=== PATIENT | female | born 1985 | race Caucasian/White ===

== ENCOUNTER 2023-06-06 03:37 | Outpatient (CLI) | payer MEDICAID, SELFPAY ==
[2023-06-06 11:14] LABS: Panorama Kit Sent via Fed Ex
[2023-06-06 11:25] LABS: Abs Immature Grans 0.03 10^3/uL (0.0-0.06); Absolute Basophil Count 0.05 10^3/uL (0.0-0.2); Absolute Eosinophil Count 0.05 10^3/uL (0.0-0.7); Absolute Monocyte Count 0.38 10^3/uL (0.1-0.8); Absolute Neutrophil Count 7.59 10^3/uL (1.2-6.7); Basophils % 0.5; Eosinophils % 0.5; HCT 37.5 % (36.0-46.0); HGB 12.7 g/dL (11.2-15.7); Immature Grans % 0.3; Lymphocytes % 23.6; MCH 29.9 pg (27.0-33.0); MCHC 33.9 % (32.0-36.0); MCV 88 fL (80-95); MPV 9.2 fL (8.0-11.0); Monocytes % 3.6; Neutrophils % 71.5; Platelet Count 270 10^3/uL (130-400); RBC 4.25 10^6/uL (3.93-5.22); RDW 12.2 % (11.7-14.6); RDW-SD 39.1 fL
[2023-06-06 21:24] LABS: Hepatitis B Surface Ag Negative (Negative)
[2023-06-06 21:52] LABS: Hepatitis C Ab w Rflx HCV PCR Negative (Negative)
[2023-06-06 21:58] LABS: HIV-1/2 Ag & Ab Screen Negative (Negative)
[2023-06-09 09:24] LABS: Rubella IgG Ab (UVM) Positive (See Note); Varicella IgG Antibody Positive (See Note)
[2023-06-10 18:36] LABS: Syphilis IgG w/Reflex Nonreactive (Nonreactive)
[2023-06-16 15:34] LABS: Result Summary NEGATIVE; Specimen WB Whole Blood
== END 2023-06-06 03:38 | disposition home or self-care (01) ==
LOC: LBO 03:37
PROVIDERS: Visit Provider Advanced Practice Midwife
DX: O09.521 Supervision of elderly multigravida, first trimester (principal); Z36.89 Encounter for other specified antenatal screening; Z3A.12 12 weeks gestation of pregnancy
CPT/HCPCS: 36415; 81220; 81222; 86787; 86803; 86850; 86900; 86901; 87340; 87389; 85025; 86762; 86780

== ENCOUNTER 2023-06-06 11:55 | Outpatient (REF) | payer MEDICAID, SELFPAY ==
[2023-06-06 13:16] LABS: *AMPHETAMINES SCREEN URINE Negative (Negative); *BARBITURATES SCREEN URINE Negative (Negative); *BENZODIAZEPINES SCREEN URINE Negative (Negative); Cannabinoids THC Negative (Negative); Cocaine Screen,Urine Negative (Negative); METHADONE URINE SCREEN Negative (Negative); OPIATES URINE SCREEN Negative (Negative); Tricyclic Antidepressants Negative (Negative)
[2023-06-13 16:48] LABS: Buprenorphine Negative ng/mL (Cutoff: 5.0); Norbuprenorphine Negative ng/mL (Cutoff: 2.5)
== END 2023-06-06 11:56 | disposition home or self-care (01) ==
LOC: LBN 11:55
PROVIDERS: Visit Provider Advanced Practice Midwife
DX: Z34.91 Encounter for supervision of normal pregnancy, unspecified, first trimester (principal); Z3A.12 12 weeks gestation of pregnancy
CPT/HCPCS: 80307; 80348; 87086

== ENCOUNTER 2023-06-20 12:39 | Outpatient (REF) | payer BC, MEDICAID, SELFPAY | END 2023-06-20 12:40 | disposition home or self-care (01) | LOC: LBN 12:39 | PROVIDERS: PCP Advanced Practice Midwife; Visit Provider Advanced Practice Midwife | DX: N89.8 Other specified noninflammatory disorders of vagina (principal) | CPT/HCPCS: 87480; 87510; 87660 ==

== ENCOUNTER 2023-07-04 10:28 | Outpatient (REF) | payer BC, MEDICAID, SELFPAY ==
[2023-07-05 14:18] LABS: Chlamydia Result Negative (Negative); GC Result Negative (Negative)
== END 2023-07-04 10:29 | disposition home or self-care (01) ==
LOC: LBN 10:28
PROVIDERS: PCP Advanced Practice Midwife; Visit Provider Advanced Practice Midwife
DX: O26.892 Other specified pregnancy related conditions, second trimester (principal); N90.89 Other specified noninflammatory disorders of vulva and perineum; Z3A.16 16 weeks gestation of pregnancy; Z11.3 Encounter for screening for infections with a predominantly sexual mode of transmission
CPT/HCPCS: 87491; 87591

== ENCOUNTER 2023-07-04 15:07 | Outpatient (CLI) | payer BC, MEDICAID, SELFPAY ==
[2023-07-14 00:33] LABS: Specimen WB Whole Blood
== END 2023-07-04 15:08 | disposition home or self-care (01) ==
LOC: LBO 15:08
PROVIDERS: PCP Advanced Practice Midwife; Visit Provider Advanced Practice Midwife
DX: Z34.92 Encounter for supervision of normal pregnancy, unspecified, second trimester (principal)
CPT/HCPCS: 36415; 81329

== ENCOUNTER 2023-10-06 05:44 | Outpatient (CLI) | payer BC, MEDICAID, SELFPAY ==
[2023-10-06 09:48] LABS: HCT 37.3 % (36.0-46.0); HGB 12.8 g/dL (11.2-15.7); MCH 32.2 pg (27.0-33.0); MCHC 34.3 % (32.0-36.0); MCV 94 fL (80-95); MPV 9.5 fL (8.0-11.0); Platelet Count 274 10^3/uL (130-400); RBC 3.98 10^6/uL (3.93-5.22); RDW 12.9 % (11.7-14.6); RDW-SD 44.3 fL; WBC 13.61 10^3/uL (4.4-10.8)
[2023-10-06 09:57] LABS: Glucose,1 Hr (Glucola) 90 mg/dL (80-140)
== END 2023-10-06 05:45 | disposition home or self-care (01) ==
LOC: LBO 05:45
PROVIDERS: Advanced Practice Midwife; PCP Advanced Practice Midwife; Visit Provider Obstetrics & Gynecology
DX: Z34.93 Encounter for supervision of normal pregnancy, unspecified, third trimester (principal); Z3A.29 29 weeks gestation of pregnancy
CPT/HCPCS: 36415; 82950; 85027

== ENCOUNTER 2023-11-21 14:22 | Outpatient (REF) | payer BC, MEDICAID, SELFPAY ==
[2023-11-21 16:20] LABS: *AMPHETAMINES SCREEN URINE Negative (Negative); *BARBITURATES SCREEN URINE Negative (Negative); *BENZODIAZEPINES SCREEN URINE Negative (Negative); Cannabinoids THC Negative (Negative); Cocaine Screen,Urine Negative (Negative); METHADONE URINE SCREEN Negative (Negative); OPIATES URINE SCREEN Negative (Negative)
[2023-11-21 16:21] LABS: Tricyclic Antidepressants Negative (Negative)
== END 2023-11-21 14:23 | disposition home or self-care (01) ==
LOC: LBN 14:22
PROVIDERS: Visit Provider Advanced Practice Midwife
DX: Z34.93 Encounter for supervision of normal pregnancy, unspecified, third trimester (principal); Z3A.36 36 weeks gestation of pregnancy
CPT/HCPCS: 80307; 87081

== ENCOUNTER 2023-12-25 08:11 | Outpatient (CLI) | payer BC, MEDICAID, SELFPAY ==
[2023-12-25 10:33] VITALS: BP 105/69; PULSE 83; TEMP 36.7
--- NOTE | 2023-12-25 12:47 | W.OBNST ---
Date of service: 12/25/23 Time of Service: 12:50 NST Evaluation Reason for NST Reasons for Nonstress Test: POSTDATES Gestational Age Gestational Age in Weeks and Days: 41 Weeks and 0Days Test and Monitor Explained Test/Monitor Explained: Test Explained, Monitor Explained and Patient Verbalized Understanding Vital Signs Blood Pressure: 105/69 Pulse: 83 Temperature: 98.1 F Urine Results Urine Protein: Negative Urine Ketones: Negative Urine Glucose: Negative Urine Blood: Negative NST Information Date on Monitor: 12/25/23 Time on Monitor: 10:15 Date off Monitor: 12/25/23 Time off Monitor: 10:40 Total Time on Monitor: 25 NST Interventions: None NST Evaluation Patient States Movement: Present FHR Baseline: 130 Variability: Moderate 6-25 bpm Accelerations: 15x15 Decelerations: None NST Results: Reactive Note Ultrasound Done: Biophysical Profile Reason for Biophysical Profile: Other. Provider that performed the study: Mare Bustillo Is this a repeat study?: No Amniotic Fluid: 2 Largest Vertical Pocket: 4.14 Muscle Tone: 2 Body Movements: 2 Breathing Movements: 2 NST Results: Reactive Total Biophysical Profile Score: 10 Coding for Biophysical Profile w/NST: Completed Exam. NST Note Note: NST for postdates. Pt will have repeat exam Friday12/29/23 on . NST Reviewed and Verified by: Mare Bustillo
[2023-12-25 12:49] VITALS: BP 105/69; PULSE 83; TEMP 36.7
== END 2023-12-25 11:00 | disposition home or self-care (01) ==
LOC: BCD 08:11 → OBS 10:19
PROVIDERS: Visit Provider Obstetrics & Gynecology Gynecology
DX: O48.0 Post-term pregnancy (principal); Z3A.41 41 weeks gestation of pregnancy
CPT/HCPCS: 59025; 76818

== ENCOUNTER 2023-12-30 09:14 | Inpatient (IN) | payer BC, MEDICAID, SELFPAY ==
[2023-12-30] VITALS (15 sets, daily range): BP systolic 97–120; BP diastolic 63–78; PULSE 65–86; RESP 16–18; TEMP 36.6–37.1
--- NOTE | 2023-12-30 09:17 | HPE_ITS ---
Date of service: 12/30/23 Time of Service: 09:17 Assessment and Plan Assessment and plan (1) Post-dates : Status: Acute Assessment and plan: A: 38 yo @ 41+5 wks, GRACIELA 9.2 per POCUS Advanced dilation without labor, Lundberg score=10 Category 1 tracing, GBS neg, AMA with low risk cfDNA screen Low risk for SD, moderate risk for PPH d/t hx retained placenta and current IOL P: Pt consents to IOL for postdates, admit inpt, CBC, T&S Will start with Fleets enema, discussing AROM vs pitocin induction w/pt Pt plans unmedicated labor and Place IV access prior to delivery, anticipate Qualifiers: Post-term type: 40-42 weeks gestation Qualified Code(s): O48.0 - Post-term OB-HPI Labor/Delivery History of Present Illness Reason for Visit: NST Chief Complaint: Scheduled Induction of Labor Indication for Induction: Post Date. CHANG Calculator Estimated Delivery Date Method Current WG Current Estimate 12/18/23 LMP (Certain) 41w 5d History of Present Expected Delivery Route/Plan - CNM FOB - Dewayne Zheng (second child together) BB undecided about circ, probably yes GBS negative support will be FOB only, plans early visiting from parents & daughter Specific Issues/Plan 1. Advanced maternal age - Level 2 US - normal anatomy 2. uterine fibroids, MFM consult- no fibroids seen 3. Panorama result low risk x5, male, CF screen negative, SMA-neg 4. Tandem Nursing- stopped now 5. Precipitous first Assessment: History Reviewed & Current Informed Consent Informed Consent: Induction of Labor and Risk,Benefits,Alternatives Discussed Review of Systems Narrative: ROS completed and found to be noncontributory other than HPI PFSH All Active Problems (Updated 12/30/23 @ 09:38 by Stephany Bolton) Post-dates (Acute) Migraine (Chronic) Advanced maternal age in multigravida (Acute) (Acute) Medical History (Updated 12/30/23 @ 09:38 by Stephany Bolton) Vaginal discharge Migraine without aura Surgical History (Updated 04/29/23 @ 13:42 by Bibi Mackey CNM) Hx of tonsillectomy History of placement of ear tubes Family History (Updated 06/06/23 @ 10:24 by Bibi Mackey CNM) Mother Hyperthyroidism Father Hypertension Aortic valve defect Paternal Grandfather Heart disease Hypertension Maternal Grandfather Stroke Brain tumor Social History Smoking/Tobacco Use Status: Never Smoking risk assessment performed?: Yes History History 3 Para 1 Hx # Term Pregnancies 1 Multiple births 0 Hx # Pregnancies 0 Ectopic pregnancies 0 AB induced 0 Hx Number of Living Children 1 AB spontaneous 1 Past Pregnancies Del. Date GA/Weeks # Preg Succ Route Wgt Sex Labor Lgth Anesth esia Location Prov Complic 09/20/19 40 No Yes vaginal 6 lb 6 oz Female 3 hours [place] Delivery Date: 09/20/19 Last Updated by: Stephany Bolton Quick labor, placenta came out in pieces, heavy bleeding not requiring transfer or transfusion. Delivery at [facility]) Meds Allergies and Home Medications Allergies Allergy/AdvReac Type Severity Reaction Status Date / Time cefaclor (From [facility]) Allergy Hives Verified 12/30/23 09:27 Sulfa (Sulfonamide Allergy Hives Verified 12/30/23 09:27 Antibiotics) codeine Allergy Other (See Uncoded 12/30/23 09:27 Comment) Home Medications ?Medication ?Instructions ?Recorded ?Confirmed ?Type acetaminophen 500 mg capsule 500 mg PO Q6H PRN 04/29/23 12/30/23 History vitamins no.175-iron 1 tab PO DAILY 04/29/23 12/30/23 History fumarate 29 mg-folic acid 1 mg tablet diphenhydramine HCl 25 mg tablet 25 mg PO TID PRN 06/20/23 12/30/23 History (Benadryl Allergy) Exam Physical Exam Vital signs: Pulse BP 78 97/64 L 12/30/23 08:12 12/30/23 08:12 Vital Signs Reviewed: Yes Constitutional Constitutional: no acute distress, average body habitus and cooperative Detailed Labor and Delivery Exam Dilation: 6 Effacement (%): 80 station: -3 Position: LOT Consistency: soft LUNDBERG Score(Cervical Ripeness Score): 10 Amniotic Membrane Status: Intact Contraction Frequency(min): irregular Contraction Intensity: Mild Fetus A Heart Rate Baseline: 130 Monitor Accelerations: 15 X 15 Monitor Decelerations: None Variability: Moderate (6-25 BPM) Categories: Category I Est. Weight: 7 lb 14.986 oz Est. Weight: 3600 gms HEENT Exam HEENT Exam: Normal Neck Exam Neck Exam: Normal Chest/Brest/Axilla Exam Chest Exam: Normal Breast Exam Breast Exam: Not Done Respiratory Exam Respiratory Exam: Normal Cardiovascular Exam Cardiovascular Exam: Normal Abdominal Exam Abdominal Exam: Normal (Gravid, nontender) Rectal Exam Rectal Exam: Normal Exam Exam: Normal Extremities Exam Extremities Exam: Normal Back/Spine/Pelvis Exam Back Exam: Normal Pelvis Adequate: Yes Skin Exam Skin Exam: Normal Neurological Exam Neurological Exam: Normal Psychiatric Exam Psychiatric Exam: Normal Results Results Group Beta Strep: Negative Blood Type: A+ Rubella Status: Immune Varicella Immunity: Immune Risk Assessment Risk for Shoulder Dystocia Historical/Initial OB: NEGATIVE FOR: Pelvic Abnormality, Pre- BMI>30, Previous Shoulder Dystocia or Previous Macrosomia 36 Weeks: NEGATIVE FOR: Current Gestational DM, EFW>4500gms or Maternal Weight Gain>40lbs 40 Weeks: POSTIVE FOR: Post Dates; NEGATIVE FOR: EFW> 4500 gms or Maternal Weight Gain >40lb Increased Risk?: No Delivery Plan @ 36wks: Delivery Plan @ 40 wks: Risk for Pre-Eclampsia Daily Dose ASA Indicated: No Date Initiated/Initials: 06/06/23 Yes, if one or more: NEGATIVE FOR: Hx Pre-E/Gest HTN, Chronic HTN, Multiple Gestation, Pre-gestational DM, Renal Disease, Systemic Lupus or APA Syndrome Yes, if 2 or more: POSITIVE FOR: Age>= 35 yrs; NEGATIVE FOR: Nulliparity, >10yr btwn pregnancies, BMI>30, ethinicty, Mother/Sister w/ Pre-E or Previous IUGR Risk for Post- Hemorrhage Initial: NEGATIVE FOR: Multiple Gestation, Previous PPH, Known Clotting Deficiency, Grand Multiparity or Anticoagulation 36 Weeks: NEGATIVE FOR: Anemia, hgb<10, Low platelets(thrombocytopenia), Gestational HTN or Pre-E, Polyhydraminios or EFW>4500gms 40 Weeks: NEGATIVE FOR: Anemia, hgb<10, Low platelets (thrombocytopenia), Gestation HTN or Pre-E, Polyhydraminios or EFW>4500gms At Risk?: Yes (hx retained placenta previous delivery after precip ) Counseled re: Active Management: Yes Risks Reviewed Risks Reviewed Upon Admission: Yes
[2023-12-30 09:50] LABS: HCT 40.8 % (36.0-46.0); HGB 13.5 g/dL (11.2-15.7); MCH 31.4 pg (27.0-33.0); MCHC 33.1 % (32.0-36.0); MCV 95 fL (80-95); MPV 10.8 fL (8.0-11.0); Platelet Count 173 10^3/uL (130-400); RDW 12.5 % (11.7-14.6); RDW-SD 42.9 fL; WBC 9.01 10^3/uL (4.4-10.8)
[2023-12-30] MEDS: Na Phosphate Enema-Adult 133 ML BTL PR (09:54)
--- NOTE | 2023-12-30 10:42 | W.OBNST ---
Date of service: 12/30/23 Time of Service: 09:00 NST Evaluation Reason for NST Reasons for Nonstress Test: POSTDATES Gestational Age Gestational Age in Weeks and Days: 41 Weeks and 5Days Test and Monitor Explained Test/Monitor Explained: Test Explained Vital Signs Blood Pressure: 97/64 Pulse: 78 Temperature: 98.6 F Urine Results Urine Protein: Negative Urine Ketones: Negative Urine Glucose: Negative Urine Blood: Negative NST Information Date on Monitor: 12/30/23 Time on Monitor: 08:14 Date off Monitor: 12/30/23 Time off Monitor: 08:50 Total Time on Monitor: 36 NST Interventions: PO Hydration NST Evaluation Patient States Movement: Present FHR Baseline: 135 Variability: Moderate 6-25 bpm Accelerations: 15x15 Decelerations: None NST Results: Reactive Note Ultrasound Done: GRACIELA Total GRACIELA: 9.2 Other Pertinent Findings: Heart Rate (130), Presentation (cephalic) and Placental Location (anterior) Coding for GRACIELA w/NST: Completed Exam. NST Note Note: Pt desires IOL for postdates, will admit. NST Reviewed and Verified by: Stephany Bolton
--- NOTE | 2023-12-30 12:36 | PGE_ITS ---
Date of service: 12/30/23 Time of Service: 11:30 Informed Consent Informed Consent: Induction of Labor (fleets was done, will hold additional procedures at this time) and Risk,Benefits,Alternatives Discussed Pelvic Exam Dilation: 7 Effacement (%): 100 station: -2 Fetus A Monitor: Doppler Heart Rate Baseline: 125 FHR Rhythm: Regular Characteristics: Normal Assessment and Plan Assessment and plan (1) Post-dates : Status: Acute Assessment and plan: A: Cervical change palpable after fleets completed Pt appears a bit more uncomfortable FHT reassuring per doppler, IV access in place P: Will re-check for progress, consider AROM Anticipate Qualifiers: Post-term type: 40-42 weeks gestation Qualified Code(s): O48.0 - Post-term Objective Temp Pulse Resp BP 97.9 F 74 16 105/67 12/30/23 10:30 12/30/23 10:30 12/30/23 10:30 12/30/23 10:30 Laboratory Results WBC 9.01 10^3/uL (4.4-10.8) 12/30/23 09:37 RBC 4.30 10^6/uL (3.93-5.22) 12/30/23 09:37 Hgb 13.5 g/dL (11.2-15.7) 12/30/23 09:37 Hct 40.8 % (36.0-46.0) 12/30/23 09:37 MCV 95 fL (80-95) 12/30/23 09:37 MCH 31.4 pg (27.0-33.0) 12/30/23 09:37 MCHC 33.1 % (32.0-36.0) 12/30/23 09:37 RDW 12.5 % (11.7-14.6) 12/30/23 09:37 Plt Count 173 10^3/uL (130-400) 12/30/23 09:37 MPV 10.8 fL (8.0-11.0) 12/30/23 09:37 ABO/Rh A Positive 12/30/23 09:37 Antibody Screen NEGATIVE 12/30/23 09:37 Subjective Interval history since last seen: Contractions are a bit more noticeable since enema completed, sitting on p [email or web address]
[2023-12-30] MEDS: Oxytocin/Normal Saline 30 UNIT/500 ML BAG 2 UNITS IV (14:00)
[2023-12-30] MEDS: Lactated Ringers 1,000 ML 125 ML IV (14:00)
--- NOTE | 2023-12-30 15:24 | W.PM.OBNL1 ---
Date of service: 12/30/23 Time of Service: 15:24 Informed Consent Informed Consent: Induction of Labor (Pitocin augmentation started @ ~1330, consented for AROM) and Risk,Benefits,Alternatives Discussed Pelvic Exam Dilation: 8 Effacement (%): 100 station: -1 Position: WISAM Contractions Monitor Mode: External Contraction Frequency(min): q2-4 Intensity: Moderate/Strong Fetus A Monitor: External (US) Heart Rate Baseline: 135 Variability: Moderate (6-25 BPM) Categories: Category I Accelerations: Present Decelerations: None Amniotic Membrane Status: Ruptured Rupture Method: Artifical Amniotic Fluid: Clear Amount: moderate Date of Membrane Rupture: 12/30/23 Time of Membrane Rupture: 15:18 Assessment and Plan Assessment and plan (1) Post-dates : Status: Acute Assessment and plan: A: Advancing labor in a multip, excellent coping Category 1 tracing, pelvis proven to 6'6 P: AROM accomplished, pitocin at 6 u/min Anticipate Qualifiers: Post-term type: 40-42 weeks gestation Qualified Code(s): O48.0 - Post-term Objective Vital Signs Reviewed: Yes Subjective Interval history since last seen: Contractions are a little bit stronger, pt feels she can handle the discomfort, has been ambulating in room and voiding qs.
[2023-12-30] MEDS: Oxytocin/Normal Saline 30 UNIT/500 ML BAG 95 UNITS IV (16:35)
--- NOTE | 2023-12-30 17:17 | OBVDS_ITS ---
Date of service: 12/30/23 Time of Service: 17:17 OB Labor/ Delivery Information Baby A Delivery Delivery Method: Spontaneaous Presentation: Cephalic Cephalic Position: Vertex Vertex Position: Left Occipital Anterior Breech Position: N/A Cord Description-Baby A: 3 Vessels and Nuchal Cord (snug, unable to reduce overhead, body delivered through loop) Amniotic Fluid: Clear Estimated Blood Loss: 450 QBL Delivery Outcome: Liveborn Infant Transferred: Remains with Mother Note: Labor intensified after AROM, pitocin @ 8 u/min, category 1 tracing. Pt began to feel urges to push, found to be fully dilated and +3, 2nd stage huddle completed, excellent maternal efforts while in LLP position resulted in of vigorous male infant over attempted intact perineum, nuchal cord noted but unable to reduce over head so pushed over anterior shoulder which delivered with ease. Bulb sx on field and then placed in mother's arms for drying, pitocin bolus initiated, cord clamped and cut by FOB, cord blood c ollected, Chiu placenta delivered intact with 3 VC and trailing membranes which were teased out by grasping and twisting with Liudmila forcep. Vulva and vaginal inspected, first degree laceration repaired with 3.0 Vicryl using topical anesthestic benzocaine 20% aerosol. Fundus remained firm, rubra minimal, strong family bonding observed, apgars 8/9, weight 3960 gms. Providers Nurse Human Resources Professional: Stephany Bolton Nurse: Deepti Elizalde Nurse: Aurelia Munoz Other: Bettina Dickey Labor/Delivery Information Number of Babies in Womb: 1 Steroids Given: None Reason Steroids Not Administered: N/A Group Beta Strep: Negative Antibiotics Administered: No Rubella Status: Immune Blood Type: A+ Varicella Immunity: Immune Shoulder Dystocia: No Stages of Labor Onset of Labor Date: 12/30/23 Onset of Labor Time: 11:30 Complete Dilatation Date: 12/30/23 Complete Dilatation Time: 16:00 Labor - Stage 1 Duration: 4 hours and 30 minutes ROM Baby A: 12/30/23 ROM Baby A: 15:18 ROM Total Time- Baby A: [id number] Delivery Date-Baby A: 12/30/23 Infant Delivery Time-Baby A: 16:21 Labor Stage 2 Duration: 21 minutes Placenta Delivery Date-Baby A: 12/30/23 Placenta Delivery Time-Baby A: 16:28 Labor-Stage 3 Duration: 7 minutes Total Length of Labor-Baby A: 4 hours and 51 minutes Placenta Status: Delivered Baby A Infant Gender: Male Gestational Status: Term (39-41.6 wks) Gestational Age in Weeks/Days: 41 Weeks and 5 Days weight: 8 lb 11.685 oz Weight Comment: 3960 gms Score-1 Minute Interval(Baby A) Heart Rate-1 minute: 100 BPM or Greater Respiratory Effort- 1 minute: Spontaneous/Strong Cry Muscle Tone-1 minute: Active Movement Reflex Response-1 minute: Prompt Response Color-1 minute: Pallor or Cyanosis Total Score-1 minute: 8 Score-5 Minute Interval(Baby A) Heart Rate- 5 minute: 100 BPM or Greater Respiratory Effort-5 minute: Spontaneous/Strong Cry Muscle Tone-5 minute: Active Movement Reflex Response-5 minute: Prompt Response Color-5 minute: Bluish Hands or Feet Total Score- 5 minute: 9
[2023-12-30] MEDS: Hamamelis Leaf/Glycerin 100 EACH BOX PR (17:25)
[2023-12-30] MEDS: Dibucaine 1% 28 GM TUBE TP (17:25)
[2023-12-30] MEDS: Benzocaine 20% 60 ML CAN (17:26)
[2023-12-30] MEDS: Ibuprofen 600 MG TAB PO (18:06)
[2023-12-30] MEDS: Acetaminophen 325 MG TAB 650 MG PO (18:06)
[2023-12-31 01:15] VITALS: BP 106/72; PULSE 79; RESP 18; TEMP 36.6
[2023-12-31 04:05] VITALS: BP 104/70; PULSE 68; RESP 16; TEMP 36.6; O2SAT 99
[2023-12-31] MEDS: Acetaminophen 325 MG TAB 650 MG PO ×2 (04:06→08:19)
[2023-12-31] MEDS: Ibuprofen 600 MG TAB PO ×2 (04:08→10:29)
[2023-12-31 08:31] VITALS: BP 95/60; PULSE 73; RESP 16; TEMP 36.6; O2SAT 97
--- NOTE | 2023-12-31 14:59 | W.PM.OBPNV1 ---
Date of service: 12/31/23 Time of Service: 14:59 Assessment and Plan Assessment and plan (1) Term delivered: Status: Acute Assessment and plan: A: nml PPD#1, satisfied with experience going well P: Pt desires discharge at 24 hrs PP Planning IUD for BCM after 6 wks PP Written instructions reviewed and given to pt F/up @ 2 and 6 wks PP Subjective Subjective Patient comments: No complaints, Pain well controlled, Tolerating diet and Flatus present Patient's Mood: happy, tired baby status: Doing well, Nursing well, Rooming in and Strong Bonding Observed feeding status: Exclusively breast feeding Exam Physical Exam Vital signs: Temp Pulse Resp BP Pulse Ox 97.9 F 73 16 95/60 L 97 12/31/23 08:31 12/31/23 08:31 12/31/23 08:31 12/31/23 08:31 12/31/23 08:31 Vital Signs Reviewed: Yes Constitutional Constitutional: no acute distress, thin and cooperative HEENT Exam HEENT Exam: Normal Neck Exam Neck Exam: Normal Respiratory Exam Respiratory Exam: Normal Cardiovascular Exam Cardiovascular Exam: Normal Abdominal Exam Abdomen: Other (soft, nontender) Fundal Exam Fundus: Below Umbilicus and Firm Rectal Exam Rectal Exam: Normal Exam Patient deferred: perineal exam Perineum: Repair Intact Extremities Exam Extremity Exam: Normal, Full ROM and Warm to Touch Back/Spine/Pelvis Exam Back Exam: Normal Skin Exam Skin Exam: Normal Neurological Exam Neurological Exam: Normal Psychiatric Exam Psychiatric Exam: Normal
--- NOTE | 2023-12-31 15:04 | DSE_ITS ---
Date of service: 12/31/23 Time of Service: 15:04 DS: Diagnosis Discharge Diagnosis (1) Term delivered: Status: Acute Discharge Plan Disposition Patient Disposition: Home Condition: Good Discharge Details Reason For Visit: Postdates Admit Date/Time: 12/30/23 09:14 Admit Provider: Stephany Bolton Attending Provider: Stephany Bolton Primary Care Provider: Unknown,Unknown Hospital Course Hospital Course: Induction for postdates, on HD#1, planning discharge at 24 hrs, nml PP course Home Meds and New Rx's Prescriptions: No Action PNV no.175-iron fum-folic acid 29-1 mg tablet 1 tab PO DAILY acetaminophen 500 mg capsule 500 mg PO Q6H PRN diphenhydramine HCl [Benadryl Allergy] 25 mg tablet 25 mg PO TID PRN Discharge Instructions Additional Instructions: Please keep 2 and 6 wk appointments, call for any questions or concerns Stand Alone Forms: BC Instructions, BC Post Vaginal Deliver Activity:: Activity as Tolerated Equipment/Supplies:: No Equipment Needed Diet:: Normal Diet OB:DS Summary Summary Vaginal Delivery Method: Spontaneaous Contraception Discussed Contraception Discussed: Yes Contraceptive Plan: IUD, [place] Infant Gender-Baby A: Male weight: 8 lb 11.685 oz Status at Discharge Functional status at discharge: independent ambulation Overall status at discharge: patient is progressing back to baseline Mental Status: mental status grossly normal Speech and Movement: speech and movement normal and speech clear Mood: congruent mood Affect: normal affect Quality:SDOH Health Related Social Needs: No Data to Display Exam Physical Exam Vital signs: Temp Pulse Resp BP Pulse Ox 97.9 F 73 16 95/60 L 97 12/31/23 08:31 12/31/23 08:31 12/31/23 08:31 12/31/23 08:31 12/31/23 08:31 Constitutional Constitutional: no acute distress, thin and cooperative HEENT Exam HEENT Exam: Normal Neck Exam Neck Exam: Normal Respiratory Exam Respiratory Exam: Normal Cardiovascular Exam Cardiovascular Exam: Normal Abdominal Exam Abdomen: Other (soft, nontender) Fundal Exam Fundus: Below Umbilicus and Firm Rectal Exam Rectal Exam: Normal Exam Patient deferred: perineal exam Perineum: Repair Intact Extremities Exam Extremity Exam: Normal, Full ROM and Warm to Touch Back/Spine/Pelvis Exam Back Exam: Normal Skin Exam Skin Exam: Normal Neurological Exam Neurological Exam: Normal Psychiatric Exam Psychiatric Exam: Normal PFSH All Active Problems (Updated 12/31/23 @ 15:01 by Stephany Botlon) Term delivered (Acute) Migraine (Chronic) Medical History (Updated 12/31/23 @ 15:01 by Stephany Bolton) Advanced maternal age in multigravida Post-dates Vaginal discharge Migraine without aura Surgical History (Updated 04/29/23 @ 13:42 by Bibi Mackey CNM) Hx of tonsillectomy History of placement of ear tubes Family History (Updated 06/06/23 @ 10:24 by Bibi Mackey CNM) Mother Hyperthyroidism Father Hypertension Aortic valve defect Paternal Grandfather Heart disease Hypertension Maternal Grandfather Stroke Brain tumor Social History Smoking/Tobacco Use Status: Never Smoking risk assessment performed?: Yes Alcohol Intake: never Substance use type: does not use Housing: house History History 3 Para 1 Hx # Term Pregnancies 1 Multiple births 0 Hx # Pregnancies 0 Ectopic pregnancies 0 AB induced 0 Hx Number of Living Children 1 AB spontaneous 1 Past Pregnancies Del. Date GA/Weeks # Preg Succ Route Wgt Sex Labor Lgth Anesth esia Location Prov [facility] 09/20/19 40 No Yes vaginal 6 lb 6 oz Female 3 [place] Delivery Date: 09/20/19 Last Updated by: Stephany Bolton Quick labor, placenta came out in pieces, heavy bleeding not requiring transfer or transfusion. Delivery at [facility]) DS: Data Vitals/I&O Vitals and I&O: Vital Signs Temperature 97.9 F 12/31/23 08:31 Temperature 98.6 F 12/30/23 10:43 Temperature Source Oral 12/31/23 08:31 Pulse 73 12/31/23 08:31 Pulse 78 12/30/23 10:43 Pulse Rhythm Regular 12/31/23 08:33 Respiratory Rate 16 12/31/23 08:31 Respiratory Depth Normal 12/30/23 09:27 Blood Pressure 95/60 L 12/31/23 08:31 Blood Pressure 97/64 12/30/23 10:43 Blood Pressure Mean 71 12/31/23 08:31 Pulse Oximetry 97 12/31/23 08:31 Pain Level 3 12/31/23 10:29 Intake & Output 12/30/23 12/31/23 12/31/23 23:59 11:59 23:59 Intake Total 14.000 / 514.000 Output Total 1400 / 2200 800 / 800 Balance -1386.000 / -1686.000 -800 / -800 Intake: IV 14.000 / 14.000 Output: Urine 1400 / 2200 800 / 800 Other: Urine Color Pale Yellow Urine Appearance Clear Urine Odor None Comment void per pt
== END 2023-12-31 17:45 | disposition home or self-care (01) | DRG 807 ==
LOC: BCD 12-31 08:41 → OBS 12-31 08:42
PROVIDERS: Admitting Provider Advanced Practice Midwife; Visit Provider Advanced Practice Midwife
DX: O48.0 Post-term pregnancy (principal); Z37.0 Single live birth; Z3A.41 41 weeks gestation of pregnancy; O69.1XX0 Labor and delivery complicated by cord around neck, with compression, not applicable or unspecified; O70.0 First degree perineal laceration during delivery
CPT/HCPCS: 36415; 85027; 86850; 86900; 86901; 59025

== ENCOUNTER 2024-12-20 03:06 | Outpatient (CLI) | payer BC, MEDICAID, SELFPAY ==
[2024-12-20 08:19] LABS: Anion Gap 5.7 mmol/L (3-11); BUN 14 mg/dL (7-18); CO2 28.3 mmol/L (21.0-32.0); Calcium 9.5 mg/dL (8.5-10.1); Calculated LDL 108 mg/dL (<100); Chloride 104 mmol/L (98-107); Cholesterol 193 mg/dL (<200); Estimated GFR 117.75 (mL/min/1.73m2); Glucose 85 mg/dL (74-106); HDL Cholesterol 79 mg/dL (>or=50); Potassium 4.9 mmol/L (3.5-5.1); Sodium 138 mmol/L (136-145); TSH (W/Ref FT4) 1.43 uIU/mL (0.36-3.74); Triglyceride 34 mg/dL (<150); Vitamin B12 322 pg/mL (193-986)
== END 2024-12-20 03:07 | disposition home or self-care (01) ==
PROVIDERS: Absent Provider Nurse Practitioner Adult Health; PCP Nurse Practitioner Adult Health; Referring Provider Nurse Practitioner Adult Health; Visit Provider Nurse Practitioner Adult Health
DX: Z83.49 Family history of other endocrine, nutritional and metabolic diseases (principal); G43.109 Migraine with aura, not intractable, without status migrainosus; Z78.9 Other specified health status; Z13.220 Encounter for screening for lipoid disorders; Z13.1 Encounter for screening for diabetes mellitus
CPT/HCPCS: 36415; 80048; 80061; 82607; 84443